=== PATIENT | male | born 1985 | race American Indian/Alaskan Native ===

== ENCOUNTER 2016-12-14 17:50 | Emergency (ER) | payer SELFPAY ==
[2016-12-14 18:32] VITALS: BP 156/98
[2016-12-14 21:47] LABS: Bilirubin,Urine NEG (Negative); Blood,Urine NEG (Negative); Ketones,Urine TR mg/dL (Negative); Leukocyte Esterase,Urine NEG (Negative); Mucus,Urine FEW /HPF; Nitrite,Urine NEG (Negative); Protein,Urine <15 mg/dL mg/dL (Negative); Urobilinogen,Urine < 2.0 mg/dL (<2.0); WBC,Urine < 1.0 /HPF (0.0-6.0)
--- NOTE | 2016-12-14 21:51 | Emergency Department Report ---
Chief Complaint: Back Pain/Injury Stated Complaint: BACK PAIN/FREQUENT URINATION/LF SIDE PAIN Time Seen by Provider: 12/14/16 20:24 - HPI History of Present Illness: 31-year-old male presents today left-sided lower back pain that comes and goes 9 months. Patient states the pain worsened today. Positive for increased urinary frequency 2 days. Denies blood in urine, burning upon urination, penile discharge. Denies bowel or bladder incontinence. Denies radiation of pain down both extremities. Denies numbness, weakness, paresthesias. He tried [place] with relief. Denies fever, chills, nausea, vomiting, abdominal pain, chest pain, shortness of breath. - ROS Review of Systems: Per HPI - Exam Vital Signs: Vital Signs 12/14/16 18:23 Temperature 98.7 F Pulse Rate 93 H Respiratory 18 Rate Blood Pressure 156/98 O2 Sat by Pulse 100 Oximetry Physical Exam: GENERAL: The patient is well-developed and well-nourished. Patient is in NAD. HEAD: Normocephalic. Atraumatic. CHEST/LUNGS: Clear to auscultation throughout. HEART/CARDIOVASCULAR: Regular rate and rhythm. No murmurs, rubs or gallops. ABDOMEN: Abdomen is soft, nontender. Bowel sounds normoactive. No guarding or rebound tenderness. Negative for CVA tenderness bilaterally. BACK: Full ROM. No midline or paraspinal tenderness to palpation. No tenderness to palpation of sciatic notch. Negative straight leg raise bilaterally. NEURO: Alert and oriented x 3. Normal gait. MSE screening note: Focused history and physical exam performed. Due to findings the following was ordered: ED Disposition for MSE Disposition: MEDICAL SCREENING EXAM-LEFT Condition: Stable Referrals: PRIMARY CARE, [Primary Care Provider] - 3-5 Days
== END 2016-12-14 22:05 | disposition left against medical advice (07) ==
LOC: ED 17:50
DX: M54.5 Low back pain (principal); R35.0 Frequency of micturition; Z53.21 Procedure and treatment not carried out due to patient leaving prior to being seen by health care provider
CPT/HCPCS: 81001; 82962